=== PATIENT | female | born 1975 | race Caucasian/White ===

== ENCOUNTER 2016-12-29 04:37 | Emergency (ER) | payer MEDICAID ==
[~2016-12-29] VITALS: Ht 162.6 cm; Wt 61.9 kg
[2016-12-29 04:40] VITALS: Ht 162.6 cm; Wt 61.9 kg
[2016-12-29] MEDS ORDERED: HYDROmorphONE 1 MG/ML SYG IV STA (06:15)
[2016-12-29] MEDS ORDERED: ONDANSETRON 4 MG INJ IV STA (06:15)
--- NOTE | 2016-12-29 06:25 | ERD ---
ER Documentation Chief Complaint Chief Complaint PT IN C/O ABD PAIN IN EPIGASTRIC REGION X 4-5 HOURS. +N/V HPI This 41-year-old female complains of epigastric and right upper quadrant pain radiating to the right mid back onset this morning around 4 AM. She says she has nausea vomiting is nonbilious and nonbloody. Pain is described as crampy and is mild to moderate nature. First time the patient has had pain. Patient ate tacos last night for dinner. No diarrhea no fever no chest pain or shortness of breath ROS All systems reviewed and are negative except as per history of present illness. Medications Home Meds Active Scripts Ciprofloxacin Hcl* (Ciprofloxacin Hcl*) 500 Mg Tablet, 500 MG PO BID for 7 Days , TAB Prov:REBEKA PORTILLO DO 12/29/16 Hydrocodone/Acetaminophen ([place] 10-325 Tablet) 1 Each Tablet, 1 TAB PO Q6H Y for PAIN, #20 TAB Prov:REBEKA PORTILLO DO 12/29/16 Dicyclomine Hcl* (Bentyl*) 10 Mg Capsule, 20 MG PO QID, #30 CAP Prov:DEONNA PORTILLOSTHEIDIS Rogerio DO 12/29/16 FmHx Family History: No coronary disease Physical Exam Vitals Vital Signs Date Time Temp Pulse Resp B/P Pulse Ox O2 Delivery O2 Flow Rate FiO2 12/29/16 04:40 98.0 60 18 139/73 100 Physical Exam Const: Well-developed, well-nourished Head: Atraumatic, normocephalic Eyes: Normal Conjunctiva, PERRLA, EOMI, normal sclera, no nystagmus ENT: Normal External Ears, Nose and Mouth, moist mucus membranes. Neck: Full range of motion. No meningismus, no lymphadenopathy. Resp: Clear to auscultation bilaterally, no wheezing, rhonchi, rales Cardio: Regular rate and rhythm, no murmurs, S1 S2 present Abd: Soft, epigastric and right upper quadrant tenderness is mild to moderate, non distended. Normal bowel sounds, no guarding or rebound, no pulsitile abdominal masses or bruits Skin: No petechiae or rashes, no ecchymosis , no maculopapular rash Back: No midline or flank tenderness Ext: No cyanosis, or edema, FROM x 4, normal inspection, neurovascularly intact x 4 Neur: Awake and alert, STR 5/5 x 4, sensation intact x 4, no focal findings, cerebellum intact Psych: Normal Mood and Affect Result Diagram: 12/29/16 0632 12/29/16 0632 Results 24 hrs Laboratory Tests Test 12/29/16 06:32 White Blood Count 7.410^3/ul Red Blood Count 3.8210^6/ul Hemoglobin 12.0g/dl Hematocrit 34.9% Mean Corpuscular Volume 91.4fl Mean Corpuscular Hemoglobin 31.4pg Mean Corpuscular Hemoglobin Concent 34.4g/dl Red Cell Distribution Width 12.3% Platelet Count 81528^3/UL Mean Platelet Volume 9.8fl Neutrophils % 79.7% Lymphocytes % 15.0% Monocytes % 4.3% Eosinophils % 0.1% Basophils % 0.8% Nucleated Red Blood Cells % 0.0/100WBC Neutrophils # 5.910^3/ul Lymphocytes # 1.110^3/ul Monocytes # 0.310^3/ul Eosinophils # 0.010^3/ul Basophils # 0.110^3/ul Nucleated Red Blood Cells # 0.010^3/ul Sodium Level 139mmol/L Potassium Level 4.4mmol/L Chloride Level 107mmol/L Carbon Dioxide Level 25mmol/L Anion Gap 11 Blood Urea Nitrogen 10mg/dl Creatinine 0.70mg/dl Glucose Level 101mg/dl Calcium Level 8.7mg/dl Total Bilirubin 0.1mg/dl Direct Bilirubin 0.00mg/dl Indirect Bilirubin 0.1mg/dl Aspartate Amino Transf (AST/SGOT) 26IU/L Alanine Aminotransferase (ALT/SGPT) 35IU/L Alkaline Phosphatase 83IU/L Total Protein 7.7g/dl Albumin 4.0g/dl Globulin 3.70g/dl Albumin/Globulin Ratio 1.08 Lipase 114U/L Current Medications Medications (Trade) Dose Ordered Sig/Aureliano Route PRN Reason Start Time Stop Time Status Last Admin Dose Admin Hydromorphone HCl (Dilaudid) 1 mg ONCE STAT IV 12/29/16 06:15 12/29/16 06:16 DC Ondansetron HCl (Zofran Inj) 4 mg ONCE STAT IV 12/29/16 06:15 12/29/16 06:16 DC Procedures/MDM PROCEDURE: ULTRASOUND LIMITED ABDOMEN CLINICAL INDICATION: 41-year-old female with abdominal pain. TECHNIQUE: Multiple sonographic of the right upper quadrant of the abdomen were obtained. The images were reviewed on a PACS workstation. COMPARISON: None. FINDINGS: The pancreas is partially visualized and is otherwise without abnormal echogenicity. The liver displays normal echogenicity. The liver measures 13.5 cm in length. No evidence of intrahepatic biliary ductal dilatation is seen. The portal and hepatic veins are unremarkable. The gallbladder contains multiple shadowing stones. The gallbladder wall is thickened measuring 4.1 mm. There is a echogenic focus within the gallbladder fundus region measuring 2.7 x 1.6 x 1.5 cm which is not mobile. No pericholecystic fluid is seen. The common bile duct measures 3.1 mm and is not dilated. The right kidney displays normal echogenicity. The right kidney measures 10.7 x 10.5 x 5.2 cm. No caliectasis or hydronephrosis is seen. No free fluid is seen. IMPRESSION: 1. Cholelithiasis with mildly thickened gallbladder wall. 2. Echogenic gallbladder fundus nondependent nonmobile focus which may represent a large gallbladder polyp or adherent sludge ball. An underlying gallbladder tumor cannot be excluded. .Robbi Pritchett MD, MD Date Time Electronically viewed and signed by .Robbi Pritchett MD, MD on 12/29/2016 07:41 .M/ CC: REBEKA PORTILLO DO Patient did not take her pain medicine because she has 0 out of 10 pain. Reviewed signs and symptoms to return. This patient does not appear to have cholecystitis will discharge with follow-up Departure Diagnosis: Primary Impression: Gallstones Condition: Stable REBEKA PORTILLO DO Dec 29, 2016 06:25
[2016-12-29 06:52] LABS: BASOPHIL # 0.1 10^3/ul (0.0-0.1); BASOPHILS % 0.8 % (0.0-2.0); EOSINOPHILS % 0.1 % (0.0-7.0); HEMATOCRIT 34.9 % (37.0-47.0); LYMPHOCYTES # 1.1 10^3/ul (0.8-2.9); MEAN CORPUSCULAR HEMOGLOBIN 31.4 pg (29.0-33.0); MEAN CORPUSCULAR HGB CONC 34.4 g/dl (32.0-37.0); MEAN CORPUSCULAR VOLUME 91.4 fl (82.0-101.0); MEAN PLATELET VOLUME 9.8 fl (7.4-10.4); MONOCYTE # 0.3 10^3/ul (0.3-0.9); MONOCYTES % 4.3 % (0.0-11.0); NEUTROPHIL # 5.9 10^3/ul (1.6-7.5); NEUTROPHILS % 79.7 % (39.0-77.0); PLATELET COUNT 221 10^3/UL (140-415); RED BLOOD COUNT 3.82 10^6/ul (4.20-5.40); RED CELL DISTRIBUTION WIDTH 12.3 % (11.5-14.5); WHITE BLOOD COUNT 7.4 10^3/ul (4.8-10.8)
--- NOTE | 2016-12-29 07:41 | RADRPT ---
PROCEDURE: ULTRASOUND LIMITED ABDOMEN CLINICAL INDICATION: 41-year-old female with abdominal pain. TECHNIQUE: Multiple sonographic of the right upper quadrant of the abdomen were obtained. The imag es were reviewed on a PACS workstation. COMPARISON: None. FINDINGS: The pancreas is partially visualized and is otherwise without abnormal echogenicity. The liver displays normal echogenicity. The liver measures 13.5 cm in length. No evidence of intrah epatic biliary ductal dilatation is seen. The portal and hepatic veins are unremarkable. The gallbladder contains multiple shadowing stones. The gallbladder wall is thickened measuring 4.1 mm. There is a echogenic focus within the gallbladder fundus region measuring 2.7 x 1.6 x 1.5 cm whi ch is not mobile. No pericholecystic fluid is seen. The common bile duct measures 3.1 mm and is not dilated. The right kidney displays normal echogenicity. The right kidney measures 10.7 x 10.5 x 5.2 cm. No ca liectasis or hydronephrosis is seen. No free fluid is seen. IMPRESSION: 1. Cholelithiasis with mildly thickened gallbladder wall. 2. Echogenic gallbladder fundus nondependent nonmobile focus which may represent a large gallbladde r polyp or adherent sludge ball. An underlying gallbladder tumor cannot be excluded. .Robbi Pritchett MD, Date Time Electronically viewed and signed by .Robbi Pritchett MD, on 12/29/2016 07:41 .M/
[2016-12-29 07:49] LABS: ALBUMIN/GLOBULIN RATIO 1.08; BILIRUBIN,INDIRECT 0.1 mg/dl (0-1.1); BILIRUBIN,TOTAL 0.1 mg/dl (0.2-1.3); CALCIUM 8.7 mg/dl (8.4-10.2); CREATININE 0.7 mg/dl (0.44-1.00); POTASSIUM 4.4 mmol/L (3.5-5.1); TOTAL PROTEIN 7.7 g/dl (6.1-8.1)
[2016-12-29] MEDS ORDERED: CIPR500T4 PO (08:09)
[2016-12-29] MEDS ORDERED: HYDR-902 PO (08:09)
[2016-12-29] MEDS ORDERED: DICY10CA60 PO (08:09)
[2016-12-29 08:15] VITALS: BP 140/62; PULSE 74; RESP 18; TEMP 97.3
== END 2016-12-29 08:15 | disposition home or self-care (01) ==
LOC: E/R 04:37
DX: K80.20 Calculus of gallbladder without cholecystitis without obstruction (principal)
CPT/HCPCS: 36415; 76705; 80053; 83690; 85025; Z7502